=== PATIENT | male | born 2000 | race African-American/Black ===

== ENCOUNTER 2020-11-11 09:02 | Emergency (ER) | payer MEDICAID ==
[~2020-11-11] VITALS: Ht 185.4 cm; Wt 80.7 kg
[2020-11-11 09:04] VITALS: BP 144/86
[2020-11-11] MEDS ORDERED: IBUPROFEN 800 MG TAB PO ONE (11:45)
== END 2020-11-11 12:20 | disposition home or self-care (01) ==
LOC: ER 09:02
DX: S43.102A Unspecified dislocation of left acromioclavicular joint, initial encounter (principal); V49.49XA Driver injured in collision with other motor vehicles in traffic accident, initial encounter; Y93.89 Activity, other specified; Y92.488 Other paved roadways as the place of occurrence of the external cause; Y99.8 Other external cause status
CPT/HCPCS: 73030